=== PATIENT | female | born 1980 | race Caucasian/White ===

== ENCOUNTER 2024-06-22 21:49 | Emergency (ER) | payer MEDICAID ==
[~2024-06-22] VITALS: Ht 154.9 cm; Wt 71.7 kg
[2024-06-22] MEDS ORDERED: CEPH500C2 PO (22:45)
[2024-06-22] MEDS ORDERED: TRIA15OI2 TOP (22:45)
[2024-06-22 22:55] VITALS: BP 118/80; TEMP 97.8; O2SAT 98
== END 2024-06-22 22:55 | disposition home or self-care (01) ==
LOC: ER 22:06
DX: L91.0 Hypertrophic scar (principal); H92.03 Otalgia, bilateral; H95.89 Other postprocedural complications and disorders of the ear and mastoid process, not elsewhere classified
CPT/HCPCS: A4606; A4663